=== PATIENT | female | born 1945 | race Hispanic/Latino ===

== ENCOUNTER → 2017-12-10 | Outpatient (CLI) | payer MEDICARE ==
--- NOTE | 2017-12-10 17:15 | Diagnostic Imaging Report ---
PROCEDURE:US RETROPERITONEAL ( KIDNEY ). COMPARISON:None. INDICATIONS:Hematuria TECHNIQUE: Salvador-scale and color sonographic images of the bilateral kidneys and bladder where obtained in transverse and longitudinal planes. FINDINGS: RIGHT KIDNEY: 11.8 cm, cortex 1.7 cm Cysts: None Solid masses: None Stones: None Hydronephrosis: None. Mild right pelviectasis. Echogenicity: Normal LEFT KIDNEY: 10.2 cm, cortex 1.4 cm Cysts: None Solid masses: None Stones: None Hydronephrosis: None Echogenicity: Normal Bladder: No focal lesions. Bilateral ureteral jets are identified. CONCLUSION: 1. Normal bilateral renal size and echogenicity. No hydronephrosis, stones, or solid masses. 2. Mild right pelviectasis Osmar Mojica M.D. Dictated by: Osmar Mojica M.D. on 12/10/2017 at 17:17 Electronically approved by: Osmar Mojica M.D. on 12/10/2017 at 17:17
== END ==
LOC: US 15:50
PROVIDERS: ATTEND Urology
DX: R31.9 Hematuria, unspecified (principal)
CPT/HCPCS: 76770